=== PATIENT | female | born 1935 | race Caucasian/White ===

== ENCOUNTER → 2017-12-07 | Outpatient (CLI) | payer MEDICARE, BC ==
--- NOTE | 2017-12-07 10:39 | US ---
EXAMINATION TYPE: US abdomen comp/pelvis limited DATE OF EXAM: 12/07/2017 COMPARISON: 04/22/2014 CLINICAL HISTORY: R35.0 FREQ URINATION,R10.11 RUQ ABD PAIN. No pain, Increase urine frequency. No lozada rgeries. NPO. EXAM MEASUREMENTS: Liver Length: 13.6 cm Gallbladder Wall: 0.1 cm CBD: 0.3 cm CHD: 0.5 cm Spleen: 8.7 cm Right Kidney: 9.3 x 4.0 x 3.6 cm Left Kidney: 8.5 x 4.0 x 4.1 cm Limited exam due to overlying bowel gas Pancreas: Not well visualized due to overlying bowel gas Liver: Portions seen appear wnl, limited due to gas Gallbladder: fold seen CBD: wnl CHD: wnl Spleen: wnl Right Kidney: Prominent pyramids seen, possible mild hydronephrosis. Lower pole lesion seen on prev ious ultrasound not seen on today's scan. Left Kidney: Appears small in size. Limited visualization due to bowel gas Upper IVC: wnl Abd Aorta: Plaque seen Bladder: left lateral urinary bladder diverticulum is suspected but only partially visualized due to adjacent bowel gas. IMPRESSION: 1. 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 2. Previously seen right renal lesion on the prior exam of 2013 is not visualized on today's exam and could be related to a resolved cyst. 3. No sonographic evidence of cholelithiasis or acute cholecystitis.
== END | disposition home or self-care (01) ==
LOC: RADUSWWP 09:03
PROVIDERS: ATTEND Internal Medicine
DX: R35.0 Frequency of micturition (principal); R10.11 Right upper quadrant pain
CPT/HCPCS: 76700; 76857

== ENCOUNTER → 2018-08-09 | Outpatient (CLI) | payer MEDICARE, BC ==
--- NOTE | 2018-08-12 11:36 | MM ---
Reason for exam: screening (asymptomatic). Last mammogram was performed 5 years and 4 months ago. History: Patient is postmenopausal. Took estrogen for 29 years beginning at age 43. Physical Findings: A clinical breast exam by your physician is recommended on an annual basis and results should be correlated with mammographic findings. MG 3D Screening Mammo W/Cad Bilateral CC and MLO view(s) were taken. Prior study comparison: March 28, 2013, bilateral digital screening mammo w/CAD. August 19, 2010, bilateral digital screening mammogram. There are scattered fibroglandular densities. No significant changes when compared with prior studies. ASSESSMENT: Negative, BI-RAD 1 RECOMMENDATION: Routine screening mammogram of both breasts in 1 year.
== END | disposition home or self-care (01) ==
LOC: WWCWWP 10:42
PROVIDERS: ATTEND Internal Medicine
DX: Z12.31 Encounter for screening mammogram for malignant neoplasm of breast (principal)
CPT/HCPCS: 77063; 77067

== ENCOUNTER → 2019-03-18 | Outpatient (CLI) | payer MEDICARE, BC | END | disposition home or self-care (01) | LOC: LABPAT 12:40 | PROVIDERS: ATTEND Orthopaedic Surgery | DX: Z01.812 Encounter for preprocedural laboratory examination (principal) | CPT/HCPCS: 87070 ==

== ENCOUNTER → 2019-03-26 | Outpatient (CLI) | payer MEDICARE, BC ==
[2019-03-26 17:17] LABS: INR 2.6 (<1.2); Partial Thromboplastin Time 39.2 sec (22.0-30.0); Prothrombin Time 24.7 sec (9.0-12.0)
[2019-03-26 17:24] LABS: Appearance,Urine Clear (Clear); Bilirubin,Urine Negative (Negative); Blood,Urine Negative (Negative); Color,Urine Light Yellow; Glucose,Urine (UA) Negative (Negative); Ketones,Urine Negative (Negative); Leukocyte Esterase,Urine Negative (Negative); Nitrite,Urine Negative (Negative); Protein,Urine Trace (Negative); Urobilinogen,Urine <2.0 mg/dL (<2.0)
== END ==
LOC: LABPAT 16:15
PROVIDERS: ATTEND Orthopaedic Surgery
DX: Z01.812 Encounter for preprocedural laboratory examination (principal); Z01.818 Encounter for other preprocedural examination
CPT/HCPCS: 36415; 81003; 85610; 85730; 93005

== ENCOUNTER 2019-04-07 11:10 | Inpatient (IN) | payer MEDICARE, BC ==
[~2019-04-07 11:10] MED LIST: DEXAMETHASONE SOD PHOSPHATE 10 MG/ML 1 ML VIAL IV ONE; LACTATED RINGERS 1,000 ML IV SCH; LIDOCAINE 1% 20 ML VIAL (10MG/ML) FOR IV START INTRADERMA PRN; MELOXICAM 7.5 MG TAB PO ONE; ONDANSETRON 4 MG/2 ML VIAL IVP ONE; TRANEXAMIC ACID 1,000 MG in SODIUM CHLORIDE 0.9% 100 ML IVPB ONE; ceFAZolin IN SWFI 2 GM/20 ML SYRINGE IVP ONE
[2019-04-07] MEDS ORDERED: ACETAMINOPHEN TAB 500 MG TAB PO ONE (11:38)
[2019-04-07 12:02] LABS: INR 1.3 (<1.2); Prothrombin Time 13.4 sec (9.0-12.0)
[2019-04-07] MEDS ORDERED: fentaNYL (PF) 50 MCG/ML 2 ML AMP IVP ONE (12:21)
[2019-04-07] MEDS ORDERED: MIDAZOLAM (PF) 2 MG/2 ML VIAL IVP ONE (12:22)
[2019-04-07] MEDS ORDERED: ROPIVACAINE 246.25 MG, EPINEPHrine 0.5 MG, KETOROLAC 30 MG, cloNIDine HCL/PF 80 MCG, WA... MISCELLANE STA ×5 (12:48)
[2019-04-07] MEDS ORDERED: ROPIVACAINE 1,100 MG, SODIUM CHLORIDE 0.9% 500 ML 330 ML MISCELLANE PRN ×2 (13:10)
--- NOTE | 2019-04-07 13:12 | P.ANPRN ---
Procedure Note - Anesthesia - Nerve Block Performed Left Adductor Canal Infusion Time Out Performed: Yes Date of Procedure: 04/07/19 Procedure Start Time: 12:20 Procedure Stop Time: : Location of Patient Procedure: PreOp Indication: Requested by physician Specifically requested for management of pain by DrTaisha: Eugene Sosa Sedation Type: Sedate with meaningful contact maintained Preparation: Sterile Prep, Sterile Dressing Position: Supine Catheter: Indwelling Needle Types: Pajunk Needle Gauge: 20 Technique: Ultrasound Injectate: 0.5% Ropivacaine (see comment for volume) Blood Aspirated: No Pain Paresthesia on Injection Noted: No Resistance on Injection: Normal Events: Uneventful and Well Tolerated
[2019-04-07] MEDS ORDERED: ceFAZolin 3,000 MG in SODIUM CHLORIDE 0.9% IRRIGATIO 3,000 ML IRRIGATION ONE (13:18)
[2019-04-07] MEDS ORDERED: LACTATED RINGERS 1,000 ML IV ONE (13:28)
--- NOTE | 2019-04-07 14:37 | P.OP ---
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 ANESTHESIA: Spinal ESTIMATED BLOOD LOSS: 100 ml. MOTION PICTURE FILM EXAMINER: Susy Renner PA-C (assistance with: patient positioning, retraction, exposure, hemostasis, leg positioning, implantation, irrigation, closure, dress ing) COMPLICATIONS: None apparent. COMPONENTS IMPLANTED: Journey II total knee system from [employer]y [employer] Nephew, Visionaire INDICATIONS: Mrs. Turcios is in 84-year-old female with a history of left knee osteoarthritis and severe genu valgum. The patient's knee is end-stage, and conservative management has failed. The operation of knee replacement has been discussed at length in the office, as well as potential risks and complications. These are inclusive of, but not limited to: bleeding, infection, scarring, discomfort, blood vessel and nerve damage, need for further surgery, failure to relieve symptoms, persistence, recurrence, or worsening of problems, loosening, dislocation, wear, blood clot, pulmonary embolism, , gait dysfunction, stiffness, and other risks as discussed in the office. The patient elects to proceed and the consent form has been signed. Due to the patient's severe valgus deformity, I have given her the option of the visionary technique with premade computer oriented cutting blocks and she wishes to proceed with this technique. PROCEDURE: The patient was taken to the operating room and positioned on the operating room table in the supine position. Anesthesia was initiated. Care was taken to make sure that all pressure points were adequately padded. The operative lower extremity was prepped and draped in the usual aseptic fashion using ChloraPrep. Ioban drape was used for the case and the patient received intravenous antibiotics within one hour of the incision. A pneumotourniquet and leg lincoln were used for the case. The limb was exsanguinated with an Esmarch bandage and the tourniquet was inflated to 350 mmHg. Time-out was called confirming the patient's identity, side, procedure and administration of antibiotics and tranexamic acid. The incision was then created midline directly over the left knee, carried down through skin and into the subcutaneous tissues and down to fascia. Full thickness subcutaneous medial flap was developed. Medial parapatellar arthrotomy was performed and the interior of the knee was inspected. There was end-stage osteoarthritis of the knee with a mild to moderate genu varum type deformity. The fat pad was excised and proximal medial release on the tibia was completed using meticulous dissection and a curved osteotome. The anterior cruciate ligament was taken down. Note was made of significant attrition of the anterior and significant degenerative appearance of the cruciate ligaments. The exposure was excellent. The knee was flexed 90 degrees and the patella was everted. The Visionaire pre- made distal cutting block was attached and pinned into position. The planned cut was analyzed visually and found to be satisfactory without the need for any adjustment. The oscillating saw was then used to make the distal femoral cut. This cut was confirmed to be flat with the flat end of an osteotome. The retractors were placed around the tibia and the tibial surface was addressed. The Visionaire pre-made guide was placed onto the exposed tibial surface and pinned into position to eleni the rotational alignment. The alignment of the guide was checked for depth of plannned resection, slope, and varus valgus. Guide was confirmed to be in good position and the tibial cut was then created with protection of the posterior neurovascular structures and the collateral ligaments. The tibial cut surface was removed and sized. Femoral preparation was then accomplished using the 5 in 1 cutting block. The planned cuts were further analyzed prior to performing them with the oscillating saw. No femoral notching was produced. Bone fragments were removed and the cut surfaces were finished, as necessary, with a reciprocating saw. Spacer block technique was then used to confirm that the flexion and extension gaps were equal. Soft tissue releases and adjustment of the tibial and/or femoral cuts were made, as necessary, until the gaps were equal. This included release of the posterior cruciate ligament, which was excessively tight in this patient. The femur was then further finished for a posterior cruciate ligament substituting component. Patellar resurfacing was performed using a reamer. The size of the required patellar component was estimated and the patellar surface was then reamed down to a residual thickness which would recreate the gambell thickness with the component. The exact placement of the patellar component was adjusted for position based on preoperative x-rays and intraoperative findings. Prior to placing trial components, anesthetic solution consisting of ropivicaine with epinephrine, ketorolac, and clonidine was injected carefully and methodically in a grid pattern using aspiration technique into the soft tissue around the knee circumferentially, starting with the deeper tissues first and progressing to fascia, and then finally the skin/subcutaneous tissue. Particular care was taken when injecting the posterior capsule. The trial components were inserted. The tibial tray was allowed to self center and the patella was noted to track very well. The position of the tibial component was marked and noted to be nearly exactly aligned with the pre-drilled holes from the Visionaire guide. The tibia was then finished for a stemmed tibial component. Cement was mixed on the back table and applied to the final components. Trial components were removed and the cut surfaces of the bone were pulse lavaged thoroughly and dried. Cement was then applied to the tibial surface and pressurized into the surface using finger pressurization technique. The tibial component was then applied and excess cement was removed after it was impacted securely and noted to be flush with the cut surface. In similar fashion, the cement was applied to the cut femoral surface, pressurized in using finger pressurization and the component was impacted into place. Excess cement was removed. The polyethylene spacer was then implanted and locked into position. The patellar component was then applied in similar technique and a patellar clamp was used to hold the patella in place as the cement hardened. Once the cement had fully hardened, the knee was reinspected. Any other cement extrusion was removed and final kinematic testing showed range of motion from 0 to 130 degrees with excellent stability, both medially and laterally and appropriate alignment of the leg. Patellar tracking was excellent. The knee was then thoroughly pulse lavaged with normal saline. The tourniquet was deflated and hemostasis was obtained with electrocautery and IV tranexamic acid, 1 g given at the start of the operation and 1 g at the start of closure. Closure was with #2 Ethibond in the fascia/capsule and supplemented with #2 Quill, 2-0 Vicryl suture was used for the subcutaneous tissues and 3-0 Quill for the skin. Dermabond/Steri-Strips were then applied. A lightly compressive dressing was applied using Webril and an Adrío wrap. [facility] and [facility] to the recovery room in stable condition. Sponge and needle counts were correct.
[2019-04-07] MEDS ORDERED: TEMAZEPAM 15 MG CAP PO PRN (15:04)
[2019-04-07] MEDS ORDERED: NA PHOS,M-B/NA PHOS,DI-BA 133 ML ENEMA RECTAL PRN (15:04)
[2019-04-07] MEDS ORDERED: NALOXONE 0.4 MG/ML 1 ML VIAL IV PRN (15:04)
[2019-04-07] MEDS ORDERED: BISACODYL 10 MG SUPP RECTAL PRN (15:04)
[2019-04-07] MEDS ORDERED: HYDROmorphone 0.5 MG/0.5 ML SYRINGE IVP PRN ×3 (15:04)
[2019-04-07] MEDS ORDERED: MAGNESIUM HYDROXIDE 2,400 MG/10 ML CUP PO PRN (15:04)
[2019-04-07] MEDS ORDERED: ONDANSETRON 4 MG/2 ML VIAL IVP PRN (15:04)
--- NOTE | 2019-04-07 15:43 | XR ---
EXAMINATION TYPE: XR knee limited LT DATE OF EXAM: 04/07/2019 COMPARISON: NONE HISTORY: 84-year-old female evaluation for postoperative abnormality in alignment TECHNIQUE: 2 views FINDINGS: Images show placement of left total knee arthroplasty. Both distal femoral and proximal tibial compon ents of the prosthesis are well seated without periprosthetic fracture. Alignment grossly anatomic. S cattered soft tissue air as well as intra-articular air related to recent operation. IMPRESSION: Uncomplicated POSTOPERATIVE appearance left total knee arthroplasty.
[2019-04-07] MEDS ORDERED: HYDROmorphone 1 MG/ML 1 ML SYRINGE IVP ONE (16:26)
[2019-04-07] MEDS: LACTATED RINGERS 1,000 ML IV SCH (17:49)
[2019-04-07] MEDS ORDERED: WARFARIN 5 MG TAB PO SCH (18:00)
[2019-04-07 19:58] VITALS: BMI 20.7
[2019-04-07] MEDS: SENNOSIDES-DOCUSATE SODIUM 1 EACH TAB PO SCH (20:51)
[2019-04-07] MEDS ORDERED: ASPIRIN 325 MG TAB PO SCH (21:00)
[2019-04-07] MEDS ORDERED: ACETAMINOPHEN TAB 325 MG TAB PO PRN (21:00)
[2019-04-07] MEDS: ceFAZolin IN SWFI 2 GM/20 ML SYRINGE IVP SCH (21:58)
[2019-04-07] MEDS: amLODIPine 5 MG TAB PO SCH (22:04)
[2019-04-07] MEDS: ALPRAZolam 0.25 MG TAB PO SCH (22:04)
--- NOTE | 2019-04-07 23:27 | P.CONS ---
History of Present Illness - Reason for Consult Consult date: 04/07/19 Medical management Requesting physician: Eugene Sosa - Chief Complaint Left knee surgery - History of Present Illness Consultation: This is a very pleasant 84-year-old patient of Dr. Uriostegui. Chronic stable medical conditions include hypertension, hyperlipidemia, primary osteoarthritis, hypothyroid, depression. Patient status post left total knee arthroplasty. Pain is controlled. No nausea vomiting. No chest pain. No shortness of breath. Sitting up in bed. No cardiac history. Did tolerate her supper. Pain is controlled. Review of systems: GEN.: None EYES: None HEENT: None NECK: None RESPIRATORY: None CARDIOVASCULAR: None GASTROINTESTINAL: None GENITOURINARY: None MUSCULOSKELETAL: Pain in different joints LYMPHATICS: None HEMATOLOGICAL: None PSYCHIATRY: None NEUROLOGICAL: None Past medical history: Hypertension, hyperlipidemia, osteoarthritis, hypothyroid, depression Social history: Does not smoke or drink alcohol. . Does use a cane sometimes. Family history: Cancer, type unknown Physical examination: VITAL SIGNS: 97.6, 76, 17, 120/70, 94% room air GENERAL: BMI 21.1, propped up in bed comfortable. EYES: Pupils equal. Conjunctiva normal. HEENT: External appearance of nose and ears normal, oral cavity grossly normal. NECK: JVD not raised; masses not palpable. HEART: First and second heart sounds are normal; no edema. LUNGS: Respiratory rate normal; clear to auscultation. ABDOMEN: Soft, nontender, liver spleen not palpable, no masses palpable. PSYCH: Alert and oriented x3; mood and affect normal. NEUROLOGICAL: Cranial nerves grossly intact; no facial asymmetry, power and sensation grossly intact. 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 Care was discussed with the patient. Home dose of Coumadin will be resumed. Care was discussed with the patient. Questions were answered. Thank you Dr. Sosa Past Medical History Past Medical History: Cancer, Hyperlipidemia, Hypertension, Osteoarthritis (OA), Thyroid Disorder Additional Past Medical History / Comment(s): hx skin cancer, pt states current cracked rib on rt side(leaned over chair to pick something off floor) History of Any Multi-Drug Resistant Organisms: None Reported Past Surgical History: Hysterectomy, Tonsillectomy Additional Past Surgical History / Comment(s): left leg-surgery on arteries for circulation x 2, skin cancer removed from nose, dianna cataracts Past Anesthesia/Blood Transfusion Reactions: No Reported Reaction Past Psychological History: Depression Smoking Status: Never smoker Past Alcohol Use History: None Reported Past Drug Use History: None Reported - Past Family History Sister(s) Family Medical History: Cancer Medications and Allergies Home Medications Medication Instructions Recorded Confirmed Type ALPRAZolam [Xanax] 0.25 mg PO HS 03/31/19 04/07/19 History Acetaminophen Tab [Tylenol Tab] 650 mg PO Q6H PRN 03/31/19 04/07/19 History Aspirin [Adult Low Dose Aspirin EC] 81 mg PO DAILY 03/31/19 04/07/19 History Atorvastatin [Lipitor] 40 mg PO W/SUPPER 03/31/19 04/07/19 History Carvedilol [Coreg] 6.25 mg PO QAM 03/31/19 04/07/19 History Escitalopram [Lexapro] 20 mg PO DAILY 03/31/19 04/07/19 History Levothyroxine Sodium [Synthroid] 75 mcg PO DAILY 03/31/19 04/07/19 History Multivitamins, Thera [Multivitamin 1 tab PO DAILY 03/31/19 04/07/19 History (formulary)] Warfarin Sodium [Coumadin] 2.5 mg PO SUTUTHSA 03/31/19 04/07/19 History Warfarin [Coumadin] 5 mg PO MOWEFR 03/31/19 04/07/19 History amLODIPine BESYLATE [Norvasc] 5 mg PO W/SUPPER 03/31/19 04/07/19 History HYDROcodone/APAP 5-325MG [[place] 1 - 2 each PO Q4-6H PRN #50 tab 04/07/19 Rx 5-325] Sennosides-Docusate Sodium 1 tab PO BID #60 tablet 04/07/19 Rx [Senokot-S] Allergies Allergy/AdvReac Type Severity Reaction Status Date / Time Sulfa (Sulfonamide Allergy tongue and Verified 04/07/19 18:01 Antibiotics) lip swelling Physical Exam Vitals: Vital Signs Temp Pulse Pulse Resp BP Pulse Ox 04/07/19 21:12 97.6 F 76 17 120/70 94 L 04/07/19 18:07 97.8 F 95 15 171/64 95 04/07/19 17:40 75 16 139/70 95 04/07/19 16:55 78 16 99 04/07/19 16:40 76 16 136/66 99 04/07/19 16:15 82 16 157/78 16 L 04/07/19 16:00 76 16 156/63 95 04/07/19 15:45 77 18 160/72 95 04/07/19 15:30 80 16 151/66 95 04/07/19 15:15 77 16 159/74 97 04/07/19 15:00 78 16 166/77 97 04/07/19 12:30 73 16 140/65 99 04/07/19 11:30 97 F L 66 18 141/65 97 Intake and Output 04/07/19 04/07/19 04/08/19 14:59 22:59 06:59 Intake Total 1401 50 Output Total 100 Balance 1301 50 Intake: IV 1401 50 Output: Estimated Blood Loss 100 Other: Voiding Method Bedpan # Voids 1 Results Labs: Abnormal Lab Results - Last 24 Hours (Table) 04/07/19 Range/Units 11:32 PT 13.4 H (9.0-12.0) sec INR 1.3 H (<1.2)
[2019-04-08] MEDS: LACTATED RINGERS 1,000 ML IV SCH ×3 (02:39→21:44)
[2019-04-08] MEDS: ceFAZolin IN SWFI 2 GM/20 ML SYRINGE IVP SCH (02:39)
[2019-04-08] MEDS: HYDROcodone/APAP 5-325MG 1 EACH TAB PO PRN ×4 (04:59→21:42)
[2019-04-08] MEDS: LEVOTHYROXINE 75 MCG TAB PO SCH (04:59)
[2019-04-08] MEDS: CARVEDILOL 6.25 MG TAB PO SCH (07:34)
[2019-04-08] MEDS: MELOXICAM 7.5 MG TAB PO SCH (07:34)
[2019-04-08] MEDS: ESCITALOPRAM 20 MG TAB PO SCH (07:34)
[2019-04-08] MEDS: MULTIVITAMINS, THERA 1 EACH TAB PO SCH (07:34)
--- NOTE | 2019-04-08 08:44 | P.PN ---
Subjective Progress Note Date: 04/08/19 Principal diagnosis: Status post left total knee arthroplasty This is an 84 year-old female post left total knee arthroplasty. This is post- op day 1. The patient was evaluated at the bedside today. The patient denies nausea, vomiting, abdominal pain, shortness of breath, and chest pain this morning. She states her pain is controlled at this time. The patient has not been up with physical therapy but has ambulated a few times to the bathroom last night. Objective - Vital Signs Vital signs: Vital Signs Temp 97.9 F 04/08/19 07:00 Pulse 75 04/08/19 07:00 Resp 16 04/08/19 07:00 BP 106/57 04/08/19 07:00 Pulse Ox 98 04/08/19 07:00 Intake & Output 04/07/19 04/08/19 04/08/19 18:59 06:59 18:59 Intake Total 1451 Output Total 100 Balance 1351 Intake: IV 1451 Output: Estimated Blood Loss 100 Other: Voiding Method Bedpan # Voids 2 - Exam The patient does not appear in acute distress. Alert and orientated x3. Dressing is clean dry and intact. Incision appears fine with no erythema or active drainage. Calf is soft and nontender. Good foot and ankle motion without difficulty. Sensation and circulatory status is intact. - Labs Labs: Abnormal Lab Results - Last 24 Hours (Table) 04/07/19 Range/Units 11:32 PT 13.4 H (9.0-12.0) sec INR 1.3 H (<1.2) Assessment and Plan (1) Osteoarthritis of left knee Current Visit: Yes Status: Acute Code(s): M17.12 - UNILATERAL PRIMARY OSTEOARTHRITIS, LEFT KNEE SNOMED Code(s): 789631013333974 (2) Status post total left knee replacement Current Visit: Yes Status: Acute Code(s): Z96.652 - PRESENCE OF LEFT ARTIFICIAL KNEE JOINT SNOMED Code(s): 2258490176600 Plan: 1. Continue pain control 2. Anticoagulation with Coumadin per internal medicine 3. Start physical therapy and ambulation today 4. Anticipate discharge home with homecare tomorrow
[2019-04-08 09:00] LABS: Anisocytosis Slight; Basophils % (A) 0 %; Eosinophils % (A) 0 %; HCT 31.8 % (34.0-46.0); HGB 10.2 gm/dL (11.4-16.0); Hypochromasia Slight; Lymphocytes # (A) 1.2 k/uL (1.0-4.8); Lymphocytes % (A) 10 %; MCH 25.8 pg (25.0-35.0); MCHC 32.2 g/dL (31.0-37.0); MCV 80.2 fL (80.0-100.0); Mean Platelet Volume 7.5; Monocytes # (A) 0.4 k/uL (0-1.0); Monocytes % (A) 3 %; Neutrophils # (A) 10.7 k/uL (1.3-7.7); Neutrophils % (A) 86 %; Platelet Count 192 k/uL (150-450); RBC 3.96 m/uL (3.80-5.40); RDW 16.4 % (11.5-15.5); WBC 12.5 k/uL (3.8-10.6)
[2019-04-08 09:08] LABS: INR 1.4 (<1.2)
[2019-04-08 09:09] LABS: Prothrombin Time 14.4 sec (9.0-12.0)
--- NOTE | 2019-04-08 10:16 | P.PN ---
Progress Note - Text 04/08 644am 84 year old female s/p tkr by Dr Sosa. pt has an on on-q pump for post op pain control with the solution running at 8cc/hr with a vas of 3. continue present management.
[2019-04-08] MEDS: amLODIPine 5 MG TAB PO SCH (17:13)
[2019-04-08] MEDS ORDERED: ATORVASTATIN 40 MG TAB PO SCH (17:30)
[2019-04-08] MEDS ORDERED: WARFARIN 5 MG TAB PO ONE (18:00)
[2019-04-08] MEDS ORDERED: WARFARIN 5 MG TAB PO SCH (18:00)
[2019-04-08] MEDS: ALPRAZolam 0.25 MG TAB PO SCH (21:40)
[2019-04-08] MEDS: SENNOSIDES-DOCUSATE SODIUM 1 EACH TAB PO SCH (21:40)
--- NOTE | 2019-04-09 01:25 | P.PN ---
Progress Note - Text Progress Note Date: 04/08/19 - Chief Complaint Left knee surgery - History of Present Illness Consultation: This is a very pleasant 84-year-old patient of Dr. Uriostegui. Chronic stable medical conditions include hypertension, hyperlipidemia, primary osteoarthritis, hypothyroid, depression. Patient status post left total knee arthroplasty. Pain is controlled. No nausea vomiting. No chest pain. No shortness of breath. Sitting up in bed. No cardiac history. Did tolerate her supper. Pain is controlled. Today-. Pain controlled. No new issues. No chest pain or shortness of breath. Did work with therapy. Review of systems: Was done for constitutional, cardiovascular, GI, pulmonary. relevant finding as above Current medications are reviewed that included: Coumadin Physical examination: VITAL SIGNS: 98.4, 67, 16, 118/58, 97% room air GENERAL: Sitting up, comfortable EYES: Pupils equal. Conjunctiva normal. HEENT: External appearance of nose and ears normal, oral cavity grossly normal. NECK: JVD not raised; masses not palpable. HEART: First and second heart sounds are normal; no edema. LUNGS: Respiratory rate normal; clear to auscultation. ABDOMEN: Soft, nontender, liver spleen not palpable, no masses palpable. PSYCH: Alert and oriented x3; mood and affect normal. MUSCULOSKELETAL: Evidence of OA especially in the hands, dressing over the left knee Investigations: Hemoglobin 10.2 INR 1.4 Assessment: -Left total knee arthroplasty -Hyperlipidemia -Essential hypertension -Primary osteoarthritis -Hypothyroid -Depression not otherwise specified -Chronic kidney disease stage III from nephrosclerosis - Coumadin monitoring Plan: Stable. Continue current medication and to plan. Care was discussed with the patient. Thank you Dr. Sosa
[2019-04-09] MEDS: HYDROcodone/APAP 5-325MG 1 EACH TAB PO PRN (03:32)
[2019-04-09] MEDS: LEVOTHYROXINE 75 MCG TAB PO SCH (05:28)
[2019-04-09 07:29] VITALS: BP 159/66; PULSE 82; RESP 16; TEMP 98.1
[2019-04-09] MEDS: MULTIVITAMINS, THERA 1 EACH TAB PO SCH (08:49)
[2019-04-09] MEDS: ESCITALOPRAM 20 MG TAB PO SCH (08:49)
[2019-04-09] MEDS: MELOXICAM 7.5 MG TAB PO SCH (08:49)
[2019-04-09] MEDS: CARVEDILOL 6.25 MG TAB PO SCH (08:50)
[2019-04-09 09:12] LABS: Prothrombin Time 19.7 sec (9.0-12.0)
--- NOTE | 2019-04-09 10:10 | P.DS ---
Providers Date of admission: 04/07/19 11:10 Expected date of discharge: 04/09/19 Attending physician: Eugene Sosa Consults: 04/07/19 15:04 Consult Physician Routine Consulting Provider: Robert Friedman Consult Reason/Comments: Medical management Do you want consulting provider notified?: Yes Primary care physician: Jose Rutledge - Discharge Diagnosis(es) (1) Osteoarthritis of left knee Current Visit: Yes Status: Acute (2) Status post total left knee replacement Current Visit: Yes Status: Acute (3) Hypertension Current Visit: Yes Status: Acute (4) Hypothyroid Current Visit: Yes Status: Acute Hospital Course: This is a 84-year-old female who was last seen with complaint of continued left knee pain. The patient has a known history of degenerative arthritis of the left knee and presents to discuss surgical options. After discussion and consideration the patient elects to proceed with total left knee arthroplasty. The patient is seen preoperatively by her primary care physician and cleared for surgery. The patient is admitted to [facility] for total left knee arthroplasty. The procedures performed without complication or sequelae. He is doing well postoperatively. Vital signs are stable at discharge. Labs are stable at discharge. the patient is ambulating well with walker with minimal assistance. The patient is discharged to home on postop day #2 pending medical clearance. Please see orders and refer to the [facility] rec for accurate list of medications. Patient Condition at Discharge: Good Plan - Discharge Summary Discharge Rx Participant: No New Discharge Prescriptions: New HYDROcodone/APAP 5-325MG [[place] 5-325] 1 - 2 each PO Q4-6H PRN #50 tab PRN Reason: Pain Sennosides-Docusate Sodium [Senokot-S] 1 tab PO BID #60 tablet No Action amLODIPine BESYLATE [Norvasc] 5 mg PO W/SUPPER ALPRAZolam [Xanax] 0.25 mg PO HS Escitalopram [Lexapro] 20 mg PO DAILY Carvedilol [Coreg] 6.25 mg PO QAM Aspirin [Adult Low Dose Aspirin EC] 81 mg PO DAILY Atorvastatin [Lipitor] 40 mg PO W/SUPPER Levothyroxine Sodium [Synthroid] 75 mcg PO DAILY Multivitamins, Thera [Multivitamin (formulary)] 1 tab PO DAILY Warfarin [Coumadin] 5 mg PO MOWEFR Warfarin Sodium [Coumadin] 2.5 mg PO SUTUTHSA Acetaminophen Tab [Tylenol Tab] 650 mg PO Q6H PRN PRN Reason: Pain Discharge Medication List ALPRAZolam [Xanax] 0.25 mg PO HS 03/31/19 [History] Acetaminophen Tab [Tylenol Tab] 650 mg PO Q6H PRN 03/31/19 [History] Aspirin [Adult Low Dose Aspirin EC] 81 mg PO DAILY 03/31/19 [History] Atorvastatin [Lipitor] 40 mg PO W/SUPPER 03/31/19 [History] Carvedilol [Coreg] 6.25 mg PO QAM 03/31/19 [History] Escitalopram [Lexapro] 20 mg PO DAILY 03/31/19 [History] Levothyroxine Sodium [Synthroid] 75 mcg PO DAILY 03/31/19 [History] Multivitamins, Thera [Multivitamin (formulary)] 1 tab PO DAILY 03/31/19 [History] Warfarin Sodium [Coumadin] 2.5 mg PO SUTUTHSA 03/31/19 [History] Warfarin [Coumadin] 5 mg PO MOWEFR 03/31/19 [History] amLODIPine BESYLATE [Norvasc] 5 mg PO W/SUPPER 03/31/19 [History] HYDROcodone/APAP 5-325MG [[place] 5-325] 1 - 2 each PO Q4-6H PRN #50 tab 04/07/19 [Rx] Sennosides-Docusate Sodium [Senokot-S] 1 tab PO BID #60 tablet 04/07/19 [Rx] Follow up Appointment(s)/Referral(s): Susy Renner PAC [PHYSICIAN EMPLOYEE RELATIONS REPRESENTATIVE] - 04/22/19 10:25 am (With [facility]) Jose Rutledge MD [Primary Care Provider] - 1 Week [facility], [NON-STAFF] - Activity/Diet/Wound Care/Special Instructions: May bear wt as tolerated w walker. May shower if no drainage from incision. Resume regular dose of coumadin. Discharge Disposition: HOME WITH HOME HEALTH SERVICES
[2019-04-09] MEDS ORDERED: WARFARIN 5 MG TAB PO SCH (18:00)
== END 2019-04-09 12:23 | disposition home health service (06) | DRG 470 ==
LOC: 2ORMAIN 11:10 → 4SSUR 17:54
PROVIDERS: ADMIT Orthopaedic Surgery; ATTEND Orthopaedic Surgery
PROC: 0SRD0J9 Replacement of Left Knee Joint with Synthetic Substitute, Cemented, Open Approach (ICD-10-PCS; principal; 2019-04-07 12:30)
DX: M17.12 Unilateral primary osteoarthritis, left knee (principal); M21.062 Valgus deformity, not elsewhere classified, left knee; E03.9 Hypothyroidism, unspecified; E78.5 Hyperlipidemia, unspecified; F32.9 Major depressive disorder, single episode, unspecified; I12.9 Hypertensive chronic kidney disease with stage 1 through stage 4 chronic kidney disease, or unspecified chronic kidney disease; N18.3 Chronic kidney disease, stage 3 (moderate); Z79.01 Long term (current) use of anticoagulants; Z79.82 Long term (current) use of aspirin; Z79.890 Hormone replacement therapy; Z79.899 Other long term (current) drug therapy; Z85.828 Personal history of other malignant neoplasm of skin; Z90.710 Acquired absence of both cervix and uterus; Z98.42 Cataract extraction status, left eye; Z98.41 Cataract extraction status, right eye; Z88.2 Allergy status to sulfonamides
CPT/HCPCS: 85025; 85610; 88300

== ENCOUNTER → 2019-05-12 | Outpatient (CLI) | payer MEDICARE, BC ==
--- NOTE | 2019-05-12 17:12 | CT ---
EXAMINATION TYPE: CT abdomen wo/w con DATE OF EXAM: 05/12/2019 COMPARISON: None HISTORY: Middle to upper back pain x1 week CT DLP: 473.5 mGycm Automated exposure control for dose reduction was used. TECHNIQUE: Helical acquisition of images was performed from the lung bases through the top of iliac crest to include entire abdomen. CONTRAST: Performed with Oral Contrast and without and with IV Contrast, patient injected with 80 mL of Isovue 370. FINDINGS: There is some scarring and subsegmental atelectasis at the lung bases. There is mild pleural thickeni ng at the right lung base. Heart size is normal. There is no pericardial effusion. Abdominal aorta is atheromatous. There is thoracolumbar dextroscoliosis. Stomach appears normal. Spleen has normal size and contour. There is no evidence of a pancreatic mass . There are a few small pancreatic calcifications in the body that could relate to old pancreatitis. Liver has normal size and contour. Bile ducts are not dilated. Gallbladder appears normal. There is bilateral renal cortical atrophy. There is some fullness of the left and right renal pelvis. Ureters are not dilated. Abdominal aorta is atheromatous. There is no retroperitoneal adenopathy. Th ere is no evidence of free air. There is no ascites. I see no sign of retroperitoneal adenopathy. The re is multilevel spondylotic changes in the lumbar spine with disc space narrowing and spur formation . IMPRESSION: FIBROTIC CHANGES AT THE LUNG BASES. 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 NO EVIDENCE OF ACUTE PANCREATITIS. MILD PANCREATIC CALCIFICATIONS SUGGESTIVE OF CHRONIC PANCREATITIS. RENAL ATROPHY. MILD RIGHT BASILAR PLEURAL SCARRING..
== END | disposition home or self-care (01) ==
LOC: RADCTMAIN 14:59
PROVIDERS: ATTEND Family Medicine
DX: J84.10 Pulmonary fibrosis, unspecified (principal); I70.0 Atherosclerosis of aorta; K86.89 Other specified diseases of pancreas; N26.1 Atrophy of kidney (terminal); J98.4 Other disorders of lung; K85.90 Acute pancreatitis without necrosis or infection, unspecified
CPT/HCPCS: 82565; 84520; 74170; 36415; Q9967

== ENCOUNTER → 2022-08-17 | Outpatient (CLI) | payer MEDICARE, BC ==
--- NOTE | 2022-08-18 08:24 | MM ---
Reason for Exam: Screening (asymptomatic). Last mammogram was performed 4 year(s) and 0 month(s) ago. Patient History: Menarche at age 14. First Full-Term at age 21. Hysterectomy at age 43. Postmenopausal. Estrogen, starting at age 43 for 29 years. Risk Values: Valencia 5 year model risk: 0.9%. NCI Lifetime model risk: 0.9%. Prior Study Comparison: 08/19/2010 Bilateral Screening Mammogram, [facility]. 03/28/2013 Bilateral Screening Mammogram, [facility]. 08/09/2018 Bilateral Screening Mammogram, [facility]. Tissue Density: The breast tissue is heterogeneously dense. This may lower the sensitivity of mammography. Findings: Analyzed By CAD. There is no suspicious group of microcalcifications or new suspicious mass in either breast. Overall Assessment: Negative, BI-RAD 1 Management: Screening Mammogram of both breasts in 1 year. A clinical breast exam by your physician is recommended on an annual basis and results should be correlated with mammographic findings. Electronically signed and approved by: Thaddeus Goodson M.D. [facility]
== END | disposition home or self-care (01) ==
LOC: RADMAMWWP 13:08
PROVIDERS: ATTEND Family Medicine
DX: Z12.31 Encounter for screening mammogram for malignant neoplasm of breast (principal); Z78.0 Asymptomatic menopausal state
CPT/HCPCS: 77063; 77067

== ENCOUNTER → 2024-10-09 | Outpatient (CLI) | payer MEDICARE, BC ==
[2024-10-09 10:29] LABS: INR 1.1 (<1.2); Partial Thromboplastin Time 24.1 sec (22.0-30.0); Prothrombin Time 11.8 sec (10.0-12.5)
== END | disposition home or self-care (01) ==
LOC: LABWHC1 09:45
PROVIDERS: ATTEND Physical Medicine & Rehabilitation
DX: M48.062 Spinal stenosis, lumbar region with neurogenic claudication (principal); M51.26 Other intervertebral disc displacement, lumbar region; M41.26 Other idiopathic scoliosis, lumbar region; M47.814 Spondylosis without myelopathy or radiculopathy, thoracic region; M47.817 Spondylosis without myelopathy or radiculopathy, lumbosacral region; M51.17 Intervertebral disc disorders with radiculopathy, lumbosacral region; R20.2 Paresthesia of skin; Z79.01 Long term (current) use of anticoagulants
CPT/HCPCS: 36415; 85610; 85730